=== PATIENT | female | born 1995 | race African-American/Black ===

== ENCOUNTER 2021-04-20 18:00 | Emergency (ER) | payer OTHER ==
[2021-04-20] MEDS ORDERED: Ketorolac Tromethamine 30 MG/ML VIAL ONE (19:06)
[2021-04-20] MEDS ORDERED: Metoclopramide HCl 10 MG/2 ML VIAL ONE (19:06)
== END 2021-04-20 19:45 | disposition home or self-care (01) ==
LOC: CSHERS 18:00
DX: S30.0XXA Contusion of lower back and pelvis, initial encounter (principal); G43.909 Migraine, unspecified, not intractable, without status migrainosus; W01.0XXA Fall on same level from slipping, tripping and stumbling without subsequent striking against object, initial encounter
CPT/HCPCS: 96365; 96375; J1885; J2765